=== PATIENT | female | born 1955 ===

== ENCOUNTER 2022-05-18 06:34 | Day surgery (SDC) | payer OTHER ==
[~2022-05-18] VITALS: Ht 152.4 cm; Wt 63.5 kg
[~2022-05-18 06:34] MED LIST: SYNTHROID75 MCG PO
== END 2022-05-18 19:10 | disposition home or self-care (01) ==
LOC: CIR.AMB 06:34
PROVIDERS: ATTEND Colon & Rectal Surgery
DX: K60.1 Chronic anal fissure (principal); Z20.822 Contact with and (suspected) exposure to COVID-19; K62.4 Stenosis of anus and rectum; I10 Essential (primary) hypertension; E03.9 Hypothyroidism, unspecified